=== PATIENT | male | born 1965 | race Caucasian/White ===

== ENCOUNTER 2017-02-09 05:56 | Day surgery (SDC) | payer OTHER ==
[2017-01-20 10:41] VITALS: BMI 32.1
[2017-02-09] MEDS ORDERED: TRANEXAMIC ACID 1000 MG/10 ML VIAL IVPUSH ONE (06:55)
[2017-02-09] MEDS ORDERED: ROPIVICAINE 0.2%/MORPH PF/KETOROLAC - 51ML DISP.SYRINGE IA ONE ×2 (06:55→07:54)
[2017-02-09] MEDS ORDERED: CEFAZOLIN 2 GM in DEXTROSE 5%-WATER - 50 ML IVPB ONE (06:55)
[2017-02-09] MEDS: GABAPENTIN 300 MG CAPSULE (FP) PO ONE ×2 (07:05→19:38)
[2017-02-09] MEDS: oxyCODONE HCL 10 MG SUSTAINED ACTING TABLET PO ONE ×2 (07:05→19:38)
[2017-02-09] MEDS: CELECOXIB 200 MG CAPSULE PO ONE ×2 (07:05→19:39)
[2017-02-09] MEDS ORDERED: ROPIVACAINE HCL 0.5% 30ML VIAL ONE (07:19)
[2017-02-09] MEDS ORDERED: MIDAZOLAM HCL 2 MG/2 ML SINGLE DOSE VIAL ONE (07:19)
[2017-02-09] MEDS ORDERED: BUPIVACAINE HCL/PF 2.5 MG/ML - 30 ML VIAL IJ ONE (07:19)
--- NOTE | 2017-02-09 07:39 | HP ---
Admitting History and Physical - Admission Chief Complaint: Left knee osteoarthritis x years History of Present Illness: 51 year old male presents with longstanding left knee osteoarthritis. Patient admits to pain, limited ROM, difficulty ambulating and difficulty with bending/ squatting/stairs. Patient has failed conservative treatment including PO medication, injections, activity modification and an exercise program. At this point patient would like to proceed with left knee unicompartmental knee arthroplasty (MAKOplasty). History Source: Patient - Past Medical History Musculoskeletal: Yes: Osteoarthritis (left knee) - Past Surgical History Additional Past Surgical History: see written H&P - Smoking History Smoking history: Never smoked Have you smoked in the past 12 months: No - Alcohol/Substance Use Hx Alcohol Use: Yes (SOCIALLY) Home Medications - Allergies Allergies/Adverse Reactions: Allergies Allergy/AdvReac Type Severity Reaction Status Date / Time No Known Drug Allergies Allergy Verified 01/20/17 10:29 - Home Medications Home Medications: Ambulatory Orders Glucosa Mi 2Kcl/Chondroitin Mi [Glucosamine & Chondroitin Cap] 1 each PO DAILY 01/20/17 Ibuprofen [Advil -] 600 mg PO DAILY PRN 01/20/17 Multivitamins [Tab-A-Vit -] 1 tab PO DAILY 01/20/17 Review of Systems - Review of Systems Musculoskeletal: reports: Crepitus (Left knee), Decreased ROM (Left Knee), Joint Pain (Left Knee), Joint Swelling (Left Knee) Physical Examination Vital Signs: Vital Signs Temperature 98 F 02/09/17 06:32 Pulse Rate 71 02/09/17 06:32 Respiratory Rate 16 02/09/17 06:32 Blood Pressure 137/104 02/09/17 06:32 O2 Sat by Pulse Oximetry (%) Constitutional: Yes: Well Nourished, No Distress Eyes: Yes: Conjunctiva Clear HENT: Yes: Atraumatic, Normocephalic Neck: Yes: Supple Cardiovascular: Yes: Regular Rate and Rhythm Respiratory: Yes: Regular Gastrointestinal: Yes: Soft ...Rectal Exam: Yes: Deferred Musculoskeletal: Yes: Joint Stiffness (Left knee), Joint Swelling (Left Knee) Assessment/Plan 51 year old male with left knee osteoarthritis. Patient admits to pain, limited ROM and difficulty ambulating. Patient has failed conservative treatment. Proceed with a left knee unicompartmental arthroplasty (MAKOplasty).
[2017-02-09] MEDS ORDERED: TRANEXAMIC ACID 1000 MG/10 ML VIAL ONE ×3 (07:54→10:25)
[2017-02-09] MEDS ORDERED: ceFAZolin SODIUM 1 GM VIAL ONE ×2 (07:54→08:55)
[2017-02-09] MEDS ORDERED: VANCOMYCIN 1,000 MG VIAL (RESTRICTED TO ID ONLY) ONE (07:54)
[2017-02-09] MEDS ORDERED: PROPOFOL 20 ML ONE ×5 (08:47→10:50)
[2017-02-09] MEDS ORDERED: ONDANSETRON 4 MG/2 ML VIAL IVPUSH PRN (11:04)
[2017-02-09] MEDS ORDERED: oxyCODONE HCL 5 MG TABLET PO PRN (11:04)
[2017-02-09] MEDS ORDERED: LACTATED RINGERS SOLUTION 1,000 ML IV SCH ×2 (11:15→11:45)
[2017-02-09] MEDS ORDERED: traMADol HCL 50 MG TABLET ONE (11:42)
[2017-02-09] MEDS ORDERED: ACETAMINOPHEN INJECTION 100 ML IVPB ONE (11:42)
[2017-02-09] MEDS ORDERED: KETOROLAC TROMETHAMINE 30 MG/1 ML VIAL ONE (11:42)
--- NOTE | 2017-02-09 11:43 | OP ---
Operative Note - Note: Operative Date: 02/09/17 Pre-Operative Diagnosis: left knee OA Operation: left medial UKA MAKOplasty Post-Operative Diagnosis: Same as Pre-op Surgeon: Harshil Keith Manager Quality Improvement: Milena Alvarez Anesthesia: Spinal Estimated Blood Loss (mls): 50 Operative Report Dictated: Yes
[2017-02-09] MEDS ORDERED: MAG HYDROX/AL HYDROX/SIMETH 30 ML UNIT-DOSE CUP PO PRN ×2 (11:44→21:09)
[2017-02-09] MEDS ORDERED: ONDANSETRON 4 MG/2 ML VIAL IVPB PRN (11:44)
[2017-02-09] MEDS: ACETAMINOPHEN 1000 MG/100 ML VIAL (NON FORMULARY) IVPB ONE ×2 (12:00→13:20)
[2017-02-09] MEDS: KETOROLAC TROMETHAMINE 30 MG/1 ML VIAL IVPUSH SCH ×4 (12:05→22:35)
[2017-02-09] MEDS: traMADol HCL 50 MG TABLET PO SCH ×4 (12:30→22:35)
[2017-02-09] MEDS ORDERED: oxyCODONE HCL 5 MG TABLET ONE ×2 (12:45→20:20)
[2017-02-09] MEDS: CEFAZOLIN 2 GM/D5W 50 ML IVPB SCH (17:28)
[2017-02-09] MEDS ORDERED: CEFAZOLIN 2 GM in DEXTROSE 5%-WATER - 50 ML IVPB SCH (18:00)
[2017-02-09] MEDS: oxyCODONE HCL 5 MG TABLET PO PRN (20:21)
[2017-02-09] MEDS: GABAPENTIN 300 MG CAPSULE (FP) PO SCH (21:28)
[2017-02-09] MEDS: SENNOSIDES/DOCUSATE COMBO (SENNA PLUS) TABLET (UD) PO SCH (21:28)
[2017-02-09] MEDS: oxyCODONE HCL 10 MG SUSTAINED ACTING TABLET PO SCH (21:28)
[2017-02-09] MEDS: CELECOXIB 200 MG CAPSULE PO SCH (21:28)
[2017-02-09] MEDS ORDERED: GABAPENTIN 300 MG CAPSULE (FP) PO SCH (22:00)
[2017-02-09] MEDS ORDERED: oxyCODONE HCL 10 MG SUSTAINED ACTING TABLET PO SCH (22:00)
[2017-02-09] MEDS ORDERED: SENNOSIDES/DOCUSATE COMBO (SENNA PLUS) TABLET (UD) PO SCH (22:00)
[2017-02-09] MEDS ORDERED: ASCORBIC ACID 500 MG TABLET (FP) PO SCH (22:00)
[2017-02-09] MEDS ORDERED: CELECOXIB 200 MG CAPSULE PO SCH (22:00)
[2017-02-10] MEDS: CEFAZOLIN 2 GM/D5W 50 ML IVPB SCH (01:58)
[2017-02-10] MEDS: KETOROLAC TROMETHAMINE 30 MG/1 ML VIAL IVPUSH SCH (05:32)
[2017-02-10] MEDS: traMADol HCL 50 MG TABLET PO SCH (05:32)
[2017-02-10] MEDS ORDERED: oxyCODONE HCL 5 MG TABLET ONE (05:50)
[2017-02-10] MEDS: oxyCODONE HCL 5 MG TABLET PO PRN (06:18)
[2017-02-10 06:48] VITALS: PULSE 72
[2017-02-10] MEDS ORDERED: ASPIRIN 325 MG TABLET PO SCH ×2 (08:00→09:30)
[2017-02-10 08:18] LABS: ANION GAP 5 (8-16); CALCIUM 8.8 mg/dl (8.4-10.2); CO2 27 mmol/L (22-28); CREATININE 0.8 mg/dl (0.6-1.3); GLUCOSE,RANDOM 111 mg/dl (74-106)
--- NOTE | 2017-02-10 08:37 | PN ---
Progress Note (short form) - Note Progress Note: Anesthesiology Post-op/Pain Service POD#1 s/p Left knee MAKOplasty with adductor canal and selective tibial blocks and spinal anesthesia. Pt. is awake, sitting in chair, feeling well. Denies pain at this time. He was able to tolerate activity with PT, able to bear weight. VSS. No apparent anesthesia-related issues.
[2017-02-10] MEDS: oxyCODONE HCL 10 MG SUSTAINED ACTING TABLET PO SCH (09:21)
[2017-02-10] MEDS: GABAPENTIN 300 MG CAPSULE (FP) PO SCH (09:21)
[2017-02-10] MEDS: CELECOXIB 200 MG CAPSULE PO SCH (09:21)
[2017-02-10] MEDS: SENNOSIDES/DOCUSATE COMBO (SENNA PLUS) TABLET (UD) PO SCH (09:22)
[2017-02-10] MEDS ORDERED: oxyCODONE HCL 5 MG TABLET PO PRN ×2 (09:24)
[2017-02-10] MEDS ORDERED: ONDANSETRON 4 MG/2 ML VIAL IVPB PRN (09:25)
[2017-02-10] MEDS ORDERED: MAG HYDROX/AL HYDROX/SIMETH 30 ML UNIT-DOSE CUP PO PRN (09:27)
[2017-02-10 09:50] VITALS: BP 145/75; TEMP 97.8
[2017-02-10] MEDS ORDERED: ASCORBIC ACID 500 MG TABLET (FP) PO SCH (10:00)
[2017-02-10] MEDS ORDERED: PANTOPRAZOLE 40 MG TABLET (FP) PO SCH ×2 (10:00)
[2017-02-10] MEDS ORDERED: oxyCODONE HCL 10 MG SUSTAINED ACTING TABLET PO SCH (10:00)
[2017-02-10] MEDS ORDERED: MULTIVITAMINS (DAILY MVI) TABLET (FP) PO SCH ×2 (10:00)
[2017-02-10] MEDS ORDERED: CELECOXIB 200 MG CAPSULE PO SCH (10:00)
[2017-02-10] MEDS ORDERED: SENNOSIDES/DOCUSATE COMBO (SENNA PLUS) TABLET (UD) PO SCH (10:00)
[2017-02-10] MEDS ORDERED: GABAPENTIN 300 MG CAPSULE (FP) PO SCH (10:00)
--- NOTE | 2017-02-10 10:03 | PN ---
Progress Note (short form) - Note Progress Note: Pt seen and examined. Comfortable. AVSS Selected Entries 02/10/17 02/10/17 09:00 09:49 Temperature 97.8 F Pulse Rate 72 Respiratory 18 Rate Blood Pressure 145/75 O2 Sat by Pulse 100 Oximetry (%) Oxygen Delivery Room Air Method Laboratory Tests 02/10/17 02/10/17 07:45 07:45 WBC Pending Sodium 135 L Chloride 103 Carbon Dioxide 27 Anion Gap 5 L BUN 14 Creatinine 0.8 Random Glucose 111 H Calcium 8.8 Gen: NAD LLE: c/d/i, NVID A/P 51yo male POD#1 s/p L knee medial PETERSON UKA 1. PT/OOB - WBAT LLE 2. d/c home today
--- NOTE | 2017-02-10 10:09 | DS ---
Physical Examination Vital Signs: Vital Signs Temperature 97.8 F 02/10/17 09:49 Pulse Rate 72 02/10/17 09:49 Respiratory Rate 18 02/10/17 09:49 Blood Pressure 145/75 02/10/17 09:49 O2 Sat by Pulse Oximetry (%) 100 02/10/17 09:00 Labs: CBC, BMP 02/10/17 07:45 Discharge Summary Reason For Visit: OSTEOARTHRITIS LEFT KNEE Current Active Problems Osteoarthritis of left knee (Acute) Procedures: Principal: left knee medial PETERSON UKA Hospital Course: Admitted for elective surgery. Procedure performed without complications. Pt received postoperative antibiotic prophylaxis and DVT ppx. Ambulated with physical therapy. Stable for discharge home with outpatient followup. Condition: Stable - Instructions Diet, Activity, Other Instructions: Dr. Keith - Knee Replacement Instructions Keep the Aquacel dressing on until removed by Dr. Keith in 10-14 days - it is antibacterial and waterproof and you can shower with it on. Call the office for a follow-up appointment with Dr. Keith in 10-14 days. Take one Aspirin 325mg daily for 6 weeks to prevent blood clots in your legs. Take one Pantoprazole 40mg daily for 6 weeks to protect against heartburn and ulcers. Take Celebrex 200mg twice daily for 30 days to reduce swelling and inflammation. For pain: *Mild pain (1-3/10): Take 1 Tramadol tablet every 4 hours as needed. Moderate pain (4-6/10): Take 1 Tramadol tablet and 1 Percocet tablet every 4 hours as needed. Severe pain (7-10/10): Take 1 Tramadol tablet and 2 Percocet tablets every 4 hours as needed. Activity: You can put as much weight on the operative leg as you want. Right after you get home, there will be a physical therapist coming to your house to help you walk around and bend/straighten your knee. After your follow-up appointment, you will be sent for more intensive outpatient physical therapy which will include machines and equipment that the home therapist cannot bring to your house. Always use a walker or cane for balance and to prevent falls. Disposition: VNS/HOME HEALTH CARE - Home Medications Comprehensive Discharge Medication List: Ambulatory Orders Glucosa Mi 2Kcl/Chondroitin Mi [Glucosamine & Chondroitin Cap] 1 each PO DAILY 01/20/17 Multivitamins [Multivit ([facility] Formulary)] 1 tab PO DAILY 01/20/17 Ascorbic Acid [Vitamin C -] 500 mg PO BID tablet 02/10/17 Aspirin [ASA -] 325 mg PO DAILY@0800 tablet 02/10/17 Celecoxib [CeleBREX -] 200 mg PO BID #60 tab 02/10/17 Multivitamins [Multivit ([facility] Formulary)] 1 tab PO DAILY tab 02/10/17 Oxycodone HCl/Acetaminophen [Percocet 5-325 mg Tablet] 1 - 2 tab PO Q4H PRN #60 tablet MDD 10 02/10/17 Pantoprazole Sodium [Protonix -] 40 mg PO DAILY #40 tab 02/10/17 Sennosides/Docusate Sodium [Pericolace -] 2 tablet PO BID tablet 02/10/17 Tramadol HCl [Ultram -] 50 mg PO Q4H PRN #90 tablet MDD 6 02/10/17
[2017-02-10 10:42] LABS: MCH 28.3 pg (25.7-33.7); MCHC 33.9 g/dl (32.0-35.9); MEAN CELL VOLUME 83.5 fl (80-96); MEAN PLT VOLUME 8.7 fl (7.5-11.1); PLATELET COUNT 225 K/MM3 (134-434); RDW 13.3 % (11.9-15.9)
[2017-02-10] MEDS ORDERED: traMADol HCL 50 MG TABLET PO SCH (11:30)
--- NOTE | 2017-02-13 15:20 | SPEC ---
DATE OF OPERATION: 02/09/2017 PREOPERATIVE DIAGNOSIS: Left knee osteoarthritis. POSTOPERATIVE DIAGNOSIS: Left knee osteoarthritis. PROCEDURE: Left knee medial unicompartmental arthroplasty with MAKOplasty robotic navigation. ATTENDING: Carlos Catalan MD MEAL PACKER: SOUMYA Nugent ANESTHESIA: Spinal, plus sedation. ESTIMATED BLOOD LOSS: 50 mL COMPLICATIONS: None. SPECIMENS: None. DISPOSITION: The patient was transferred to the PACU in stable condition. IMPLANTS USED: PETERSON size 4 femoral component, PETERSON size 5 tibial component, an 8-mm polyethylene component. INDICATIONS: This is a 51-year-old male who presented to the office complaining of bilateral knee pain. He was seen and examined by Dr. Catalan and diagnosed with bilateral knee osteoarthritis. He was initially treated nonoperatively with injections, medications, and physical therapy, but continued to have severe pain and ambulatory dysfunction. He was indicated for medial unicompartmental knee replacement because 100% of his pain was localized to the medial compartments of the knees, and his x-ray and CAT scan findings showed degeneration of only the medial compartments and no significant arthritis, any lateral and patellofemoral compartments. The patient had pain in both of his knees, but the left was more painful; so, he elected to proceed with surgery on this one first. The risks, benefits, and alternatives to the procedure were explained to the patient in great detail, and he elected to proceed with the surgery. The patient was seen and examined by Dr. Catalan and diagnosed with isolated medial compartment osteoarthritis. The knee pain was localized to the medial joint line and there were no complaints of pain in other areas of the knee. Because of failure of initial conservative treatment, the patient was indicated for a partial knee replacement. The risks, benefits and alternatives of the procedure were explained in great detail and the patient elected to proceed with surgery. These risks included, but are not limited to, anesthesia risks, scarring, instability, stiffness, infection, pulmonary embolus, deep vein thrombosis, intraoperative fracture, intraoperative neurovascular injury, problems with wound healing, failed procedure, persistent pain, nerve injury, possibility of lower limb numbness and weakness, the need for possible subsequent salvage surgeries, persistent limp, disability and . On the day of surgery the patient was taken to the operating room and placed on the OR table. Spinal anesthesia was administered by the anesthesiologist. The patient was then positioned supine on the table and all bony prominences were padded. A nonsterile tourniquet was placed on the proximal thigh of the operative leg. The knee was then prepped and draped in the usual sterile fashion and intravenous antibiotics were given for infection prophylaxis. A surgical time out was then performed with the team and the patient's identify, procedure, side, availability of implants and the administration of antibiotics was confirmed. With the knee flexed, an 8 cm incision was made just slightly medial to the midline and carried down through the subcutaneous fat to the underlying retinaculum. Electrocautery was used to achieve hemostasis. A limited medial parapatellar arthrotomy was performed. This was followed by a subperiosteal dissection of the tissue off the proximal medial tibia. A portion of fat pad was removed from under the patellar tendon to improve visualization and a small portion of fat was excised off the distal supracondylar femur. The knee was then flexed further and the anterior horn of the medial meniscus was released. Grade 4 changes were noted diffusely throughout the medial compartment. The lateral compartment appeared to be in good condition. Femoral and tibial checkpoints were then placed in the appropriate location using a mallet. Two parallel bicortical self-drilling pins were placed in the proximal tibia after making stab incisions and bluntly dissecting down to bone. These were positioned approximately 10 cm distal to the tibial tubercle. Two pins were then placed in the proximal femur using the same technique. These were located approximately 10 cm proximal to the superior pole of the patella. The MVP Interactive navigation arrays were then attached to both the femoral and tibial pins and the lower extremity was then registered to the robotic navigation device using various joint movements, as well as inputting approximately 50 checkpoints. The knee was then taken through a full range of motion with a corrective valgus force applied. Alignment in varus/valgus was measured at 0, 30, 60, 90 and 120 degrees of flexion to determine soft tissue balance in all of these positions. The navigation device showed appropriate tracking of the virtual components on the screen, as well as a graphic representation of the soft tissue balance. The components were repositioned virtually using the software until optimal soft tissue balance was achieved. Once this was accomplished, the final plan was saved and sent to the robot. Retractors were then placed around the distal femur. The robot was brought into the sterile field and registered with the navigation device. The robotic arm with a opal was then used to remove the appropriate amount of bone from the femur and tibia as per the saved software plan. The knee was then irrigated. Trial components were placed and the knee was taken through a full range of motion to assess soft tissue balance and alignment. The tracking and range of motion were found to be excellent and the soft tissue balance was optimal and according to plan. All trial components were then removed and an Esmarch bandage was used to exsanguinate the leg. The tourniquet was inflated in preparation for cementing. All bony surfaces were cleaned with pulsatile lavage and dried. Bone cement was then prepared on the back table and final components were cemented in place in the usual fashion. Extruded cement was removed. Once the cement had hardened, the knee was taken through a full range of motion to assess stability, balance and patellar tracking. These were found to be optimal. The trial polyethylene was exchanged for a final implant. Medial and inferior osteophytes were debrided off the patella (patelloplasty). The navigation arrays and Tristin pins were removed from the femur and tibia. All wounds were then thoroughly irrigated with normal saline. A periarticular injection was used to locally infiltrate the capsular tissues surrounding the implant and prosthesis. A 1 Vicryl and 0 V-Yasmany 180 barbed sutures were used to close the arthrotomy. 2-0 Vicryl sutures were used in the subcutaneous tissues. The skin was closed using both 3-0 V-Yasmany 90 suture in a running subcuticular fashion and Dermabond skin adhesive. 4-0 undyed Vicryl and Dermabond skin adhesive was used to close the stab incisions made for the navigation pins. Once this was completed, sterile Aquacel dressings were applied to each incision site. A compressive dressing was applied. The tourniquet was then deflated and the patient was awakened and went to the PACU in stable condition. ADDENDUM: After final components were placed, a 3-minute dilute Betadine lavage was performed according to the [facility] protocol. After this, the knee was thoroughly irrigated with normal saline via pulsatile lavage, and wound closure was begun. CARLOS CATALAN M.D. LUCIEN/[id number]
== END 2017-02-10 11:30 | disposition home health service (06) ==
LOC: UNDOADMIN 05:56 → FM/S 05:56 → FASU 05:56 → EDSTATUS 08:00 → FM/S 13:00 → FASU 13:18
PROVIDERS: ATTEND Student in an Organized Health Care Education/Training Program
PROC: 8E0YXBZ Computer Assisted Procedure of Lower Extremity (ICD-10-PCS; 2017-02-09)
PROC: 8E0Y0CZ Robotic Assisted Procedure of Lower Extremity, Open Approach (ICD-10-PCS; 2017-02-09)
PROC: 0SRD0L9 Replacement of Left Knee Joint with Medial Unicondylar Synthetic Substitute, Cemented, Open Approach (ICD-10-PCS; principal; 2017-02-09 09:20)
DX: M17.12 Unilateral primary osteoarthritis, left knee (principal)
CPT/HCPCS: 20985; 27446; C1776; S2900; 36415; 73560-TC-LT; 80048; 85027; 94760; 97116-GP; 97162-GP

== ENCOUNTER 2017-11-30 16:45 | Day surgery (SDC) | payer OTHER ==
[2017-11-17 12:04] VITALS: BMI 30.7
--- NOTE | 2017-11-30 07:53 | HP ---
Admitting History and Physical - Admission Chief Complaint: right knee pain x years History of Present Illness: 52 year old male presents regarding his right knee. Longstanding history of right knee osteoarthritis. Patient complains of pain, limited ROM, difficulty ambulating and difficulties with activities of daily living. Patient has attempted conservative treatment options including PO medications, activity modification, injections and exercise program. As patient has faikled conservative treatment options, he wishes to proceed with surgical intervention - right partial knee replacement, MAKOplasty. History Source: Patient - Past Medical History Gastrointestinal: Yes: GERD Musculoskeletal: Yes: Osteoarthritis (left knee) - Past Surgical History Additional Past Surgical History: Left partial knee replacement, MAKOplasty See written H&P for additional surgical history. - Smoking History Smoking history: Never smoked Have you smoked in the past 12 months: No - Alcohol/Substance Use Hx Alcohol Use: Yes (SOCIALLY) Home Medications - Allergies Allergies/Adverse Reactions: Allergies Allergy/AdvReac Type Severity Reaction Status Date / Time No Known Drug Allergies Allergy Verified 11/17/17 11:53 - Home Medications Home Medications: Ambulatory Orders Pantoprazole Sodium [Protonix -] 40 mg PO DAILY #40 tab 02/10/17 Ranitidine [Zantac -] 300 mg PO HS 11/17/17 Review of Systems - Review of Systems Musculoskeletal: reports: Crepitus (right knee), Decreased ROM (right knee), Joint Pain (right knee) Physical Examination Vital Signs: Vital Signs Temperature 97.9 F 11/30/17 06:56 Pulse Rate 62 11/30/17 06:56 Respiratory Rate 18 11/30/17 06:56 Blood Pressure 132/80 11/30/17 06:56 O2 Sat by Pulse Oximetry (%) Constitutional: Yes: Well Nourished, No Distress Eyes: Yes: Conjunctiva Clear HENT: Yes: Atraumatic, Normocephalic Neck: Yes: Supple Cardiovascular: Yes: Regular Rate and Rhythm Respiratory: Yes: Regular Gastrointestinal: Yes: Soft ...Rectal Exam: Yes: Deferred Musculoskeletal: Yes: Joint Stiffness (right knee), Joint Swelling Assessment/Plan 52 year old male presents regarding his right knee. Longstanding history of right knee osteoarthritis. Patient complains of pain, limited ROM, difficulty ambulating and difficulty with activities of daily living. Patient has failed conservation treatment measures including PO medications, activity modification , injections and exercise program. As patient has failed conservative treatment measures, he wished to proceed with surgical intervention. Pros, cons, risks, benefits and alternatives of a right partial knee replacement, MAKOplasty was discussed with the patient. Patient confirms his understanding and consents to proceed with a right partial knee replacement, MAKOplasty procedure.
--- NOTE | 2017-11-30 12:42 | OP ---
Operative Note - Note: Operative Date: 11/30/17 Pre-Operative Diagnosis: Right knee OA Operation: Right PETERSON medial UKA Post-Operative Diagnosis: Same as Pre-op Surgeon: Harshil Keith Locomotive Observer: Milena Alvarez Anesthesia: Spinal Estimated Blood Loss (mls): 100 Operative Report Dictated: Yes
[2017-11-30] MEDS: KETOROLAC TROMETHAMINE 30 MG/1 ML VIAL IVPUSH SCH (13:00)
[2017-11-30] MEDS: traMADol HCL 50 MG TABLET PO SCH ×2 (13:00→20:11)
--- NOTE | 2017-11-30 13:27 | SPEC ---
DATE OF OPERATION: 11/30/2017 PREOPERATIVE DIAGNOSIS: Right knee osteoarthritis. POSTOPERATIVE DIAGNOSIS: Right knee osteoarthritis. PROCEDURE: Right medial unicompartmental knee replacement with MAKOplasty robotic navigation. ATTENDING: Carlos Catalan MD PROTECTOR PLATE ATTACHER: SOUMYA Nugent ANESTHESIA: Spinal plus sedation. ESTIMATED BLOOD LOSS: 100 mL. COMPLICATIONS: None. DISPOSITION: The patient was transferred to the PACU in stable condition. IMPLANTS USED: PETERSON size 5 femoral components, PETERSON size 6 tibial component, 9-mm Polyethylene component. INDICATIONS: This is a 52-year-old male who is a longtime patient of [facility] with bilateral knee osteoarthritis. All of his pain was localized to the medial compartment, and he has undergone a contralateral medial unicompartmental knee replacement last year and did well. He had similar pain in the right knee and was initially treated with conservative measures such as injections, medications, and physical therapy. He continued to have severe knee pain localized solely to the medial compartment, so he was indicated for a right medial unicompartmental knee replacement with MAKOplasty robotic navigation. The risks, benefits, and alternatives to the procedure were explained to the patient in great detail, and he elected to proceed with surgery. DESCRIPTION OF PROCEDURE: The patient was seen and examined by Dr. Catalan and diagnosed with isolated medial compartment osteoarthritis. The knee pain was localized to the medial joint line and there were no complaints of pain in other areas of the knee. Because of failure of initial conservative treatment, the patient was indicated for a partial knee replacement. The risks, benefits and alternatives of the procedure were explained in great detail and the patient elected to proceed with surgery. These risks included, but are not limited to, anesthesia risks, scarring, instability, stiffness, infection, pulmonary embolus, deep vein thrombosis, intraoperative fracture, intraoperative neurovascular injury, problems with wound healing, failed procedure, persistent pain, nerve injury, possibility of lower limb numbness and weakness, the need for possible subsequent salvage surgeries, persistent limp, disability and . On the day of surgery the patient was taken to the operating room and placed on the OR table. Spinal anesthesia was administered by the anesthesiologist. The patient was then positioned supine on the table and all bony prominences were padded. A nonsterile tourniquet was placed on the proximal thigh of the operative leg. The knee was then prepped and draped in the usual sterile fashion and intravenous antibiotics were given for infection prophylaxis. A surgical time out was then performed with the team and the patient's identify, procedure, side, availability of implants and the administration of antibiotics was confirmed. With the knee flexed, an 8 cm incision was made just slightly medial to the midline and carried down through the subcutaneous fat to the underlying retinaculum. Electrocautery was used to achieve hemostasis. A limited medial parapatellar arthrotomy was performed. This was followed by a subperiosteal dissection of the tissue off the proximal medial tibia. A portion of fat pad was removed from under the patellar tendon to improve visualization and a small portion of fat was excised off the distal supracondylar femur. The knee was then flexed further and the anterior horn of the medial meniscus was released. Grade 4 changes were noted diffusely throughout the medial compartment. The lateral compartment appeared to be in good condition. Femoral and tibial checkpoints were then placed in the appropriate location using a mallet. Two parallel bicortical self-drilling pins were placed in the proximal tibia after making stab incisions and bluntly dissecting down to bone. These were positioned approximately 10 cm distal to the tibial tubercle. Two pins were then placed in the proximal femur using the same technique. These were located approximately 10 cm proximal to the superior pole of the patella. The [employer] navigation arrays were then attached to both the femoral and tibial pins and the lower extremity was then registered to the robotic navigation device using various joint movements, as well as inputting approximately 50 checkpoints. The knee was then taken through a full range of motion with a corrective valgus force applied. Alignment in varus/valgus was measured at 0, 30, 60, 90 and 120 degrees of flexion to determine soft tissue balance in all of these positions. The navigation device showed appropriate tracking of the virtual components on the screen, as well as a graphic representation of the soft tissue balance. The components were repositioned virtually using the software until optimal soft tissue balance was achieved. Once this was accomplished, the final plan was saved and sent to the robot. Retractors were then placed around the distal femur. The robot was brought into the sterile field and registered with the navigation device. The robotic arm with a opal was then used to remove the appropriate amount of bone from the femur and tibia as per the saved software plan. The knee was then irrigated. Trial components were placed and the knee was taken through a full range of motion to assess soft tissue balance and alignment. The tracking and range of motion were found to be excellent and the soft tissue balance was optimal and according to plan. All trial components were then removed and an Esmarch bandage was used to exsanguinate the leg. The tourniquet was inflated in preparation for cementing. All bony surfaces were cleaned with pulsatile lavage and dried. Bone cement was then prepared on the back table and final components were cemented in place in the usual fashion. Extruded cement was removed. Once the cement had hardened, the knee was taken through a full range of motion to assess stability, balance and patellar tracking. These were found to be optimal. The trial polyethylene was exchanged for a final implant. Medial and inferior osteophytes were debrided off the patella (patelloplasty). The navigation arrays and Tristin pins were removed from the femur and tibia. All wounds were then thoroughly irrigated with normal saline. A periarticular injection was used to locally infiltrate the capsular tissues surrounding the implant and prosthesis. A 1 Vicryl and 0 V-Yasmany 180 barbed sutures were used to close the arthrotomy. 2-0 Vicryl sutures were used in the subcutaneous tissues. The skin was closed using both 3-0 V-Yasmany 90 suture in a running subcuticular fashion and Dermabond skin adhesive. 4-0 undyed Vicryl and Dermabond skin adhesive was used to close the stab incisions made for the navigation pins. Once this was completed, sterile Aquacel dressings were applied to each incision site. A compressive dressing was applied. The tourniquet was then deflated and the patient was awakened and went to the PACU in stable condition. CARLOS CATALAN M.D. [id number]
[2017-11-30] MEDS: oxyCODONE HCL 5 MG TABLET PO PRN ×2 (14:30→20:11)
[~2017-11-30 16:45] MED LIST: ACETAMINOPHEN 1000 MG/100 ML VIAL (NON FORMULARY) IVPB ONE; BUPIVACAINE HCL/PF (5 MG/ML) 30 ML VIAL IJ ONE; BUPIVACAINE HCL/PF 0.5% (5MG/ML) 10 ML VIAL ONE; CEFAZOLIN 2 GM/D5W 2 GM/50 ML ML IVPB ONE; CELECOXIB 200 MG CAPSULE ONE; CELECOXIB 200 MG CAPSULE PO ONE; DEXAMETHASONE SOD PHOSPHATE/PF 10 MG/ML SDV ONE; GABAPENTIN 300 MG CAPSULE (FP) ONE; GABAPENTIN 300 MG CAPSULE (FP) PO ONE; LACTATED RINGERS SOLUTION 1,000 ML IV SCH; MAG HYDROX/AL HYDROX/SIMETH 30 ML UNIT-DOSE CUP PO PRN; MIDAZOLAM HCL 2 MG/2 ML SINGLE DOSE VIAL ONE; ONDANSETRON 4 MG/2 ML VIAL IVPUSH PRN; ONDANSETRON 4 MG/2 ML VIAL ONE; PANTOPRAZOLE 40 MG TABLET (FP) ONE; PANTOPRAZOLE 40 MG TABLET (FP) PO ONE; PROPOFOL 20 ML ONE; ROPIVICAINE 0.2%/MORPH PF/KETOROLAC - 51ML DISP.SYRINGE IA ONE; SODIUM CHLORIDE 0.9% P/F 10 ML VIAL IJ ONE; TRANEXAMIC ACID 1000 MG/10 ML VIAL IVPB ONE; TRANEXAMIC ACID 1000 MG/10 ML VIAL IVPUSH ONE; TRANEXAMIC ACID 1000 MG/10 ML VIAL ONE; VANCOMYCIN 1,000 MG VIAL (RESTRICTED TO ID ONLY) IVPB ONE; VANCOMYCIN 1,000 MG VIAL (RESTRICTED TO ID ONLY) ONE; ceFAZolin SODIUM 1 GM VIAL ONE; oxyCODONE HCL 10 MG SUSTAINED ACTING TABLET ONE; oxyCODONE HCL 10 MG SUSTAINED ACTING TABLET PO ONE
[2017-11-30] MEDS: CEFAZOLIN 2 GM/D5W 2 GM/50 ML ML IVPB SCH (17:13)
[2017-11-30] MEDS ORDERED: DEXAMETHASONE SOD PHOSPHATE 10 MG/1 ML VIAL IVPB ONE (20:00)
[2017-11-30] MEDS ORDERED: ASCORBIC ACID 500 MG TABLET (FP) PO SCH (22:00)
[2017-11-30] MEDS ORDERED: GABAPENTIN 300 MG CAPSULE (FP) PO SCH (22:00)
[2017-11-30] MEDS ORDERED: SENNOSIDES/DOCUSATE COMBO (SENNA PLUS) TABLET (UD) PO SCH (22:00)
[2017-11-30] MEDS ORDERED: CELECOXIB 200 MG CAPSULE PO SCH (22:00)
[2017-11-30] MEDS ORDERED: RANITIDINE HCL 150 MG TABLET (FP) PO SCH (22:00)
[2017-12-01] MEDS: KETOROLAC TROMETHAMINE 30 MG/1 ML VIAL IVPUSH SCH ×2 (00:12→06:05)
[2017-12-01] MEDS: oxyCODONE HCL 5 MG TABLET PO PRN ×2 (00:13→06:05)
[2017-12-01] MEDS: CEFAZOLIN 2 GM/D5W 2 GM/50 ML ML IVPB SCH (01:16)
[2017-12-01] MEDS: traMADol HCL 50 MG TABLET PO SCH (01:17)
[2017-12-01 06:54] VITALS: BP 156/79; PULSE 74; TEMP 98.1
[2017-12-01 08:06] LABS: HEMATOCRIT 38.6 % (35.4-49); HEMOGLOBIN 13.1 GM/dl (11.7-16.9); MCH 28.8 pg (25.7-33.7); MEAN CELL VOLUME 84.6 fl (80-96); PLATELET COUNT 292 K/MM3 (134-434); RBC 4.56 M/mm3 (4.00-5.60); RDW 13.3 % (11.9-15.9); WHITE BLOOD COUNT 9.5 K/mm3 (4.0-10.8)
[2017-12-01 08:26] LABS: ANION GAP 6 (8-16); BLOOD UREA NITROGEN 12 mg/dl (7-18); CALCIUM 8.7 mg/dl (8.4-10.2); CHLORIDE 105 mmol/L (98-107); CO2 25 mmol/L (22-28); CREATININE 0.9 mg/dl (0.6-1.3); GLUCOSE,RANDOM 121 mg/dl (74-106); POTASSIUM 4.1 mmol/L (3.5-5.1); SODIUM 136 mmol/L (136-145)
[2017-12-01] MEDS ORDERED: MULTIVITAMINS (DAILY MVI) TABLET (FP) PO SCH (10:00)
[2017-12-01] MEDS ORDERED: PANTOPRAZOLE 40 MG TABLET (FP) PO SCH (10:00)
--- NOTE | 2017-12-01 10:26 | DS ---
Physical Examination Vital Signs: Vital Signs Temperature 98.1 F 12/01/17 06:00 Pulse Rate 74 12/01/17 06:00 Respiratory Rate 18 12/01/17 06:00 Blood Pressure 156/79 12/01/17 06:00 O2 Sat by Pulse Oximetry (%) 96 12/01/17 06:00 Labs: CBC, BMP 12/01/17 07:40 12/01/17 07:40 Discharge Summary Reason For Visit: OSTEOARTHRITIS RT KNEE Current Active Problems Osteoarthritis of right knee (Acute) Procedures: Principal: [facility] knee medial [facility] Course: Admitted for elective surgery. Procedure performed without complications. Pt received postoperative antibiotic prophylaxis and DVT ppx. Ambulated with physical therapy. Stable for discharge home with outpatient followup. Condition: Stable - Instructions Diet, Activity, Other Instructions: Dr. Keith - Knee Replacement Instructions Keep the Aquacel dressing on until removed by Dr. Keith in 10-14 days - it is antibacterial and waterproof and you can shower with it on. Call the office for a follow-up appointment with Dr. Keith in 10-14 days. [phone] Take one Aspirin 325mg daily for 6 weeks to prevent blood clots in your legs. Take one Pantoprazole 40mg daily for 6 weeks to protect against heartburn and ulcers. Take Celebrex 200mg twice daily for 30 days to reduce swelling and inflammation. Take Cephalexin (antibiotic) 3x/day for 10 days to help prevent skin infection. Take a multivitamin, stool softener, and extra vitamin C supplement daily. For pain: *Mild pain (1-3/10): Take 1 Tramadol tablet every 4 hours as needed. Moderate pain (4-6/10): Take 1 Tramadol tablet and 1 Percocet tablet every 4 hours as needed. Severe pain (7-10/10): Take 1 Tramadol tablet and 2 Percocet tablets every 4 hours as needed. Activity: You can put as much weight on the operative leg as you want. Right after you get home, there will be a physical therapist coming to your house to help you walk around and bend/straighten your knee. After your follow-up appointment, you will be sent for more intensive outpatient physical therapy which will include machines and equipment that the home therapist cannot bring to your house. Always use a walker or cane for balance and to prevent falls. Expect to see swelling/bruising from the operative site all the way down to your toes. Wear the compression stocking on the operative side during the day to minimize how much swelling there is in your foot/ankle. Don't wear the stocking at night. You don't have to wear a stocking on the other side. Disposition: [facility]/HOME HEALTH CARE - Home Medications Comprehensive Discharge Medication List: Ambulatory Orders Ranitidine [Zantac -] 300 mg PO HS 11/17/17 Ascorbic Acid [Vitamin C -] 500 mg PO BID tablet 12/01/17 Celecoxib [CeleBREX -] 200 mg PO BID #60 capsule 12/01/17 Cephalexin Monohydrate [Keflex -] 500 mg PO TID #30 capsule 12/01/17 Multivitamins [Multivit ([facility] Formulary)] 1 tab PO DAILY tab 12/01/17 Oxycodone HCl/Acetaminophen [Percocet 5-325 mg Tablet] 1 - 2 tab PO Q4H PRN #60 tablet MDD 8 12/01/17 Pantoprazole Sodium [Protonix -] 40 mg PO DAILY #40 tab 12/01/17 Sennosides/Docusate Sodium [Pericolace -] 1 tablet PO BID tablet 12/01/17 traMADol HCL [Ultram -] 50 mg PO Q4H PRN #90 tablet MDD 6 12/01/17
--- NOTE | 2017-12-01 10:31 | PN ---
Progress Note (short form) - Note Progress Note: Anesthesia postop 52 yo male s/p R medial knee partial replacement S: Patient happy with anesthesia. No complaints of pain. Ambulating. Eating without n/v O: VSS, alert, interactive A/P: No anesthetic issues. Encouraged incentive spirometer and ambulation
== END 2017-12-01 11:10 | disposition home or self-care (01) ==
LOC: FASU 16:45 → FM/S 16:45 → FASU 12-01 11:10 → FM/S 12-01 11:10
PROVIDERS: ATTEND Student in an Organized Health Care Education/Training Program
PROC: 8E0YXBZ Computer Assisted Procedure of Lower Extremity (ICD-10-PCS; 2017-11-30)
PROC: 8E0Y0CZ Robotic Assisted Procedure of Lower Extremity, Open Approach (ICD-10-PCS; 2017-11-30)
PROC: 0SRC0L9 Replacement of Right Knee Joint with Medial Unicondylar Synthetic Substitute, Cemented, Open Approach (ICD-10-PCS; principal; 2017-11-30 09:09)
DX: M17.11 Unilateral primary osteoarthritis, right knee (principal)
CPT/HCPCS: 20985; 27446; C1776; S2900; 36415; 73560-TC-RT-FY; 80048; 85027; 94010; 94760; 97116-GP; 97162-GP; J0131; J1100